=== PATIENT | female | born 1980 | race Two or more races ===

== ENCOUNTER 2018-03-07 11:33 | Outpatient (CLI) | payer OTHER | END 2018-03-07 11:42 | disposition home or self-care (01) | LOC: RX STUDY 11:33 | DX: N91.2 Amenorrhea, unspecified (principal); N93.9 Abnormal uterine and vaginal bleeding, unspecified; Q50.6 Other congenital malformations of fallopian tube and broad ligament ==

== ENCOUNTER 2021-05-26 09:11 | Outpatient (CLI) | payer OTHER | END 2021-05-26 09:16 | disposition home or self-care (01) | LOC: SONOGRAMA 09:11 → MAMO-SONO 13:15 | PROVIDERS: ATTEND Obstetrics & Gynecology Reproductive Endocrinology | DX: N80.8 Other endometriosis (principal); N93.8 Other specified abnormal uterine and vaginal bleeding ==